=== PATIENT | male | born 1965 | race Two or more races ===

== ENCOUNTER 2023-04-01 07:38 | Emergency (ER) | payer MEDICAID ==
[~2023-04-01] VITALS: Ht 167.6 cm; Wt 94.7 kg
[2023-04-01 07:43] VITALS: BP 134/83
== END 2023-04-01 10:38 | disposition home or self-care (01) ==
LOC: ER 07:38
DX: S00.03XA Contusion of scalp, initial encounter (principal); F41.8 Other specified anxiety disorders; W18.09XA Striking against other object with subsequent fall, initial encounter; Y93.89 Activity, other specified; Y92.89 Other specified places as the place of occurrence of the external cause; Y99.8 Other external cause status
CPT/HCPCS: 70450